=== PATIENT | female | born 1985 | race Two or more races ===

== ENCOUNTER → 2017-07-26 | Outpatient (CLI) | payer OTHER ==
[~2017-07-26] VITALS: Ht 152.4 cm; Wt 72.6 kg
[~2017-07-26] MED LIST: LUTERA-28 TABL1 EACH PO; LUTERA1 TAB; LUTERA1 TAB PO; PANTOPRAZOLE SO40 MG PO; PREDNISONE20 MG PO
== END | disposition home or self-care (01) ==
LOC: PPHC 11:49
DX: D69.3 Immune thrombocytopenic purpura (principal); I10 Essential (primary) hypertension

== ENCOUNTER 2017-08-03 12:50 | Emergency (ER) | payer OTHER ==
[~2017-08-03] VITALS: Ht 160 cm; Wt 74.4 kg
[2017-08-03] MEDS ORDERED: LUTERA-28 TABL1 EACH (13:08)
[2017-08-03] MEDS ORDERED: PNEU16DI2 (13:08)
== END 2017-08-03 16:21 | disposition home or self-care (01) ==
LOC: ER 12:50
DX: G24.3 Spasmodic torticollis (principal)

== ENCOUNTER 2018-08-08 10:52 | Outpatient (CLI) | payer OTHER ==
[~2018-08-08 10:52] MED LIST changes: +LUTERA-28 TABL1 EACH; +PNEU16DI2
== END 2018-08-08 15:38 | disposition home or self-care (01) ==
LOC: RAD 10:52
DX: R09.81 Nasal congestion (principal)

== ENCOUNTER 2018-08-08 12:24 | Outpatient (CLI) | payer OTHER ==
[~2018-08-08] VITALS: Ht 160 cm; Wt 77.1 kg
== END 2018-08-08 12:45 | disposition home or self-care (01) ==
LOC: OFIC 805 12:24
DX: D69.3 Immune thrombocytopenic purpura (principal); J33.8 Other polyp of sinus; J32.8 Other chronic sinusitis

== ENCOUNTER 2018-09-09 10:09 | Outpatient (CLI) | payer OTHER ==
[~2018-09-09] VITALS: Ht 152.4 cm; Wt 77.1 kg
== END 2018-09-09 10:25 | disposition home or self-care (01) ==
LOC: OFIC 805 10:09
DX: J32.8 Other chronic sinusitis (principal); J33.0 Polyp of nasal cavity

== ENCOUNTER 2021-01-29 20:05 | Emergency (ER) | payer OTHER ==
[~2021-01-29] VITALS: Ht 160 cm; Wt 86.2 kg
== END 2021-01-29 23:25 | disposition home or self-care (01) ==
LOC: ER 20:05
DX: S93.492A Sprain of other ligament of left ankle, initial encounter (principal); X50.0XXA Overexertion from strenuous movement or load, initial encounter; Y93.89 Activity, other specified; Y92.098 Other place in other non-institutional residence as the place of occurrence of the external cause; Y99.8 Other external cause status